=== PATIENT | female | born 1955 | race Hispanic/Latino ===

== ENCOUNTER 2023-11-16 10:04 | Emergency (ER) | payer OTHER ==
[~2023-11-16] VITALS: Ht 152.4 cm; Wt 70.3 kg
[2023-11-16] MEDS ORDERED: CALCIUM GLUC 1GM/10ML VIAL IVPB STA (10:58)
[2023-11-16 11:01] LABS: BASOPHILS # (AUTO) 0.02 K/uL (0.00-0.20); BASOPHILS % (AUTO) 0.4 % (0.0-5.0); EOSINOPHILS # (AUTO) 0.01 K/uL (0.00-0.70); EOSINOPHILS % (AUTO) 0.2 % (0.0-8.0); HEMATOCRIT 28.8 % (36-48); LYMPHOCYTES # (AUTO) 1.1 K/uL (1.0-4.8); LYMPHOCYTES % (AUTO) 23.6 % (21.0-51.0); MEAN CORPUSCULAR HEMOGLOBIN 25.1 pg (27.0-33.0); MEAN CORPUSCULAR HGB CONC 31.6 g/dL (32.0-36.0); MEAN CORPUSCULAR VOLUME 79.6 fL (79-99); MONOCYTES # (AUTO) 0.3 K/uL (0.1-1.0); MONOCYTES % (AUTO) 6.7 % (3.0-13.0); NEUTROPHILS % (AUTO) 64.8 % (40.0-77.0); PLATELET COUNT (AUTO) 160 K/uL (130-400); RED BLOOD CELL COUNT(AUTO) 3.62 MIL/uL (4.00-5.50); RED CELL DISTRIBUTION WIDTH 15.8 % (11.0-15.5); WHITE BLOOD COUNT (AUTO) 4.7 K/uL (4.8-10.8)
[2023-11-16 11:13] LABS: CREATININE 1.3 mg/dL (0.5-1.0); POTASSIUM 5.6 mmol/L (3.5-5.1)
[2023-11-16 11:18] LABS: BILIRUBIN,TOTAL 0.7 mg/dL (0.2-1.0); TOTAL PROTEIN, SERUM 6.3 g/dL (6.0-8.3)
[2023-11-16 12:28] VITALS: PULSE 63; RESP 18
[2023-11-16 15:02] VITALS: BP 140/62; PULSE 62; RESP 20; O2SAT 99
== END 2023-11-16 15:06 | disposition home or self-care (01) ==
LOC: EDH 10:04
DX: E87.5 Hyperkalemia (principal); E11.9 Type 2 diabetes mellitus without complications; E78.00 Pure hypercholesterolemia, unspecified; I10 Essential (primary) hypertension; Z94.4 Liver transplant status
CPT/HCPCS: 36415; 80053; 84484; 85025; 93005